=== PATIENT | male | born 1955 | race African-American/Black ===

== ENCOUNTER 2017-01-08 15:05 | Emergency (ER) | payer OTHER ==
[~2017-01-08] VITALS: Ht 185.4 cm; Wt 65.8 kg
[2017-01-08 18:34] VITALS: BP 132/89
== END 2017-01-08 18:34 | disposition other institution (70) ==
LOC: ED 15:05
DX: S60.222A Contusion of left hand, initial encounter (principal); F17.210 Nicotine dependence, cigarettes, uncomplicated; V49.50XA Passenger injured in collision with unspecified motor vehicles in traffic accident, initial encounter; W22.10XA Striking against or struck by unspecified automobile airbag, initial encounter; Y93.89 Activity, other specified; Y92.89 Other specified places as the place of occurrence of the external cause; Y99.8 Other external cause status
CPT/HCPCS: 90714

== ENCOUNTER → 2017-01-08 | Emergency (ER) | payer OTHER | END | disposition home or self-care (01) | LOC: ED 15:05 | DX: Z01.89 Encounter for other specified special examinations (principal) ==